=== PATIENT | female | born 1960 | race Caucasian/White ===

== ENCOUNTER → 2019-05-09 | Emergency (ER) | payer OTHER ==
[~2019-05-09] VITALS: Ht 167.6 cm; Wt 89.4 kg
[~2019-05-09] MED LIST: LEVOTHYROXINE25 MCG; MICARDIS80 MG
== END | disposition left against medical advice (07) ==
LOC: ER 17:53
DX: Z53.20 Procedure and treatment not carried out because of patient's decision for unspecified reasons (principal)

== ENCOUNTER 2020-05-18 05:17 | Emergency (ER) | payer OTHER ==
[~2020-05-18] VITALS: Ht 167.6 cm; Wt 94.3 kg
[2020-05-18] MEDS ORDERED: MICARDIS80 MG (05:28)
[2020-05-18] MEDS ORDERED: SYNTHROID50 MCG (05:29)
[2020-05-18] MEDS ORDERED: METFORMIN HCL500 M3 (05:29)
[2020-05-18] MEDS ORDERED: LEVSIN/SL0.125 MG SL (12:22)
[2020-05-18] MEDS ORDERED: CIPRO500 MG PO (12:22)
[2020-05-18] MEDS ORDERED: PEPCID AC20 MG PO (12:22)
== END 2020-05-18 12:31 | disposition home or self-care (01) ==
LOC: ER 05:17
DX: K57.90 Diverticulosis of intestine, part unspecified, without perforation or abscess without bleeding (principal); K52.9 Noninfective gastroenteritis and colitis, unspecified; R10.32 Left lower quadrant pain

== ENCOUNTER 2022-10-15 10:03 | Emergency (ER) | payer OTHER ==
[~2022-10-15] VITALS: Ht 167.6 cm; Wt 79.4 kg
[~2022-10-15 10:03] MED LIST changes: +CIPRO500 MG PO; +LEVSIN/SL0.125 MG SL; +METFORMIN HCL500 M3; +PEPCID AC20 MG PO; +SYNTHROID50 MCG
[2022-10-15] MEDS ORDERED: JANUVIA50 MG PO (10:53)
== END 2022-10-15 15:20 | disposition home or self-care (01) ==
LOC: ER 10:03
DX: B34.9 Viral infection, unspecified (principal); Z20.822 Contact with and (suspected) exposure to COVID-19; E11.9 Type 2 diabetes mellitus without complications; Z79.84 Long term (current) use of oral hypoglycemic drugs; I10 Essential (primary) hypertension; E03.9 Hypothyroidism, unspecified; Z88.0 Allergy status to penicillin; Z88.8 Allergy status to other drugs, medicaments and biological substances; Z88.2 Allergy status to sulfonamides

== ENCOUNTER 2025-07-29 10:47 | Emergency (ER) | payer OTHER ==
[~2025-07-29] VITALS: Ht 167.6 cm; Wt 90.3 kg
[~2025-07-29 10:47] MED LIST changes: +JANUVIA50 MG PO
[2025-07-29 11:17] VITALS: BP 99/70; O2SAT 97
[2025-07-29] MEDS ORDERED: MOUNJARO2.5 MG/0.5 SQ (11:20)
[2025-07-29] MEDS ORDERED: ONDANSETRON HCL 4 MG in 0.9 % SODIUM CHLORIDE 50 ML IV ONE (12:30)
[2025-07-29] MEDS ORDERED: 0.9 % SODIUM CHLORIDE 1,000 ML IV ONE (12:30)
[2025-07-29] MEDS ORDERED: 0.9 % SODIUM CHLORIDE 1,000 ML IV SCH (12:30)
[2025-07-29] MEDS ORDERED: FAMOTIDINE/PF 20 MG in 0.9 % SODIUM CHLORIDE 8 ML IV PUSH ONE (12:30)
[2025-07-29] MEDS ORDERED: MORPHINE SULFATE 2 MG/ML SYRINGE IV ONE (12:30)
[2025-07-29] MEDS ORDERED: FAMOTIDINE/PF 20 MG/2 ML VIAL ONE (12:37)
[2025-07-29] MEDS ORDERED: ONDANSETRON HCL 2 MG/ML VIAL ONE (12:37)
[2025-07-29 12:44] LABS: BASO % 0.2 % (0.1-1.2); EOS # 0.01 (0.04-0.54); EOS % 0.1 % (0.7-7.0); LYMPH # 0.78 (1.18-3.74); LYMPH % 7.0 % (19.3-53.1); MEAN PLATELET VOLUME 9.80 fl (9.4-12.4); MONO # 0.49 (0.24-0.82); MONO % 4.4 % (4.7-12.5); NEUT # 9.82 (1.56-6.13); NEUT % 88.0 % (34.0-71.1); RED CELL DISTRIBUTION WIDTH 13.2 % (11.6-14.4)
[2025-07-29 13:02] LABS: INR 1.1
[2025-07-29 13:08] LABS: ALT/SGPT 55.0 U/L (12-78); AST/SGOT 42.0 U/L (15-37); BILIRUBIN TOTAL 0.64 mg/dL (0.3-1.2); BUN CREA RATIO 16.0 (7.0-25.0); CREATININE SERUM 0.94 mg/dL (0.55-1.02); GFR 59.95; GLOBULINA 5.3 G/DL (2.4-3.5); GLUCOSE FASTING 126.0 mg/dL (65-100); OSMOLALITY SERUM 284.0 MOSM/KG (275-295)
[2025-07-29 14:14] LABS: URINE APPEARANCE Cloudy; URINE BILIRRUBIN Negative (NEGATIVE); URINE BLOOD Small; URINE COLOR Yellow; URINE GLUCOSE Negative (NEGATIVE); URINE KETONE Negative (NEGATIVE); URINE LEUKOCYTE Trace; URINE NITRATE Negative; URINE PROTEIN Trace (NEGATIVE); URINE UROBILINOGEN 0.2 E.U./dl
[2025-07-29 14:18] LABS: URINE BACTERIA 22.7 uL (0.0-1933); URINE EPITHELIAL CELLS 5.0 uL (0.0-38.8); URINE RBC 14.8 uL (0.0-20.8); URINE WBC 39.9 uL (0.0-23.2)
[2025-07-29 14:23] LABS: URINE CAST 0.00 uL (0.0-1.40)
[2025-07-29] MEDS ORDERED: METRONIDAZOLE/SODIUM CHLORIDE 500 MG/100 ML PIGGYBACK IV ONE ×2 (15:45→15:58)
[2025-07-29] MEDS ORDERED: CIPROFLOXACIN IN 5 % DEXTROSE 200 ML IV ONE (15:45)
[2025-07-29] MEDS ORDERED: CIPROFLOXACIN IN 5 % DEXTROSE 400 MG/200 ML PIGGYBAG IV ONE (15:58)
== END 2025-07-29 18:49 | disposition home or self-care (01) ==
LOC: ER 10:48
PROVIDERS: General Practice
DX: R51.9 Headache, unspecified (principal); Z88.0 Allergy status to penicillin; Z88.2 Allergy status to sulfonamides